=== PATIENT | female | born 1990 | race Caucasian/White ===

== ENCOUNTER 2023-05-31 12:35 | Outpatient (CLI) | payer OTHER, SELFPAY | END 2023-05-31 12:36 | disposition home or self-care (01) | LOC: NFLDREF 06-02 06:02 | PROVIDERS: PCP Physician Assistant Medical; Referring Provider Physician Assistant Medical; Visit Provider Family Medicine | DX: R39.9 Unspecified symptoms and signs involving the genitourinary system (principal) | CPT/HCPCS: 87086 ==